=== PATIENT | male | born 1985 | race Caucasian/White ===

== ENCOUNTER 2018-01-23 06:58 | Observation (INO) | payer OTHER ==
--- NOTE | 2018-01-23 07:18 | NUR ---
PATIENT TO ROOM VIA EMS UNDER EXECUTIVE SERVICES ADMINISTRATOR. PHYSICIAN AT BEDSIDE FOR EVAL LEMUS CATHTER INSERTED 1525 ML STRAW COLORED URINE
--- NOTE | 2018-01-23 07:25 | NUR ---
PATIENT ADMITS TO TAKING UNKNOWN AMOUNT OF MOLLY[place] AND K2 KENIA 199901/22/18.
[2018-01-23 07:35] LABS: BARBITURATES NEGATIVE (NEGATIVE); COCAINE NEGATIVE (NEGATIVE); METHADONE NEGATIVE (NEGATIVE); OXCYCODONE NEGATIVE (NEGATIVE); TETRAHYDROCANNABIONOL NEGATIVE (NEGATIVE); TRICYLIC ANTIDEPRESSANTS NEGATIVE (NEGATIVE)
[2018-01-23 07:36] LABS: URINE BILIRUBIN - DIPSTICK NEGATIVE (NEGATIVE); URINE BLOOD DIPSTICK NEGATIVE (NEGATIVE); URINE COLOR YELLOW; URINE GLUCOSE - DIPSTICK >=1000 mg/dL (NEGATIVE); URINE KETONE NEGATIVE (NEGATIVE); URINE LEUK ESTERASE NEGATIVE (NEGATIVE); URINE NITRITE - DIPSTICK NEGATIVE (Negative); URINE PROTEIN - DIPSTICK NEGATIVE (NEG-TRACE); URINE SPECIFIC GRAVITY <=1.005; URINE UROBILINOGEN - DIPSTICK 0.2 E.U./dL (0.2)
[2018-01-23 07:39] LABS: URINE CLARITY CLEAR
[2018-01-23 07:40] LABS: HEMATOCRIT 36.9 % (39.0-50.0); HEMOGLOBIN 12.7 g/dl (14.0-18.0); IMMATURE GRANULOCYTES 0.8 % (0.0-1.0); MEAN CORPUSCULAR HGB 31.7 pG CALC (26.0-32.0); MEAN CORPUSCULAR HGB CONC 34.4 g/L CALC (32.0-36.0); NEUT# 13.17 thou/uL (1.82-7.42); RED BLOOD COUNT 4.01 mill/uL (4.70-6.10); RED CELL DISTRI WIDTH 12.4 % (11.5-15.5)
[2018-01-23 07:55] LABS: ALBUMIN 3.6 g/dL (3.2-5.0); ALKALINE PHOSPHATASE 55 u/l (38-126); ANION GAP 20 (6-22 (CALC)); BILIRUBIN, TOTAL 0.4 mg/dL (0.0-1.4); BUN 12 mg/dL (9-20); BUN/CREATININE RATIO 13 (12-20 (CALC)); CARBON DIOXIDE 16 mmol/l (22-30); CHLORIDE 110 mmol/l (95-108); CREATININE 0.9 mg/dL (0.7-1.3); ETHYL ALCOHOL 0 mg/dl (0-30); GFR > 60 ML/MIN (>=60 (CALC)); GFR FOR AFR.AMER. > 60 ML/MIN (>=60 (CALC)); MAGNESIUM 2.2 mg/dL (1.6-2.3); POTASSIUM 3.6 mmol/l (3.5-5.1); SGOT/AST 21 u/l (17-59); SGPT/ALT 29 u/l (21-72); SODIUM 142 mmol/l (137-146); TOTAL PROTEIN 6.5 g/dL (6.3-8.2)
--- NOTE | 2018-01-23 08:18 | NUR ---
PATINT RESTING AWAITING LAB AND RADIOLOGY RESULTS. PATIENT RESTING WITH EYES CLOSED BUT EASILY AROUSED TO SPEECH. PATIENT VOICES NO PAIN OR CONCERNS AT THIS TIME
--- NOTE | 2018-01-23 09:04 | NUR ---
PATIENT RESTING AWAITING LAB RESULTS. PATIENT DENIES ANY PAIN OR DISCOMFORT AT THIS TIME. PATIENT REMAINS GUARDED AT BEDSIDE
--- NOTE | 2018-01-23 10:00 | NUR ---
PATIENT RESTING WITH EYES CLOSED. PATIENT EASILY AROUSED TO SPEECH. PATIENT DENIES ANY PAIN OR DISCOMFORT AT THIS TIME
--- NOTE | 2018-01-23 10:32 | NUR ---
2000ML OF STRAW COLORED CLEAR URINE FROM LEMUS BAG
[2018-01-23 11:04] LABS: ANION GAP 14 (6-22 (CALC)); BUN 11 mg/dL (9-20); BUN/CREATININE RATIO 12 (12-20 (CALC)); CHLORIDE 112 mmol/l (95-108); CREATININE 0.9 mg/dL (0.7-1.3); GFR > 60 ML/MIN (>=60 (CALC)); GFR FOR AFR.AMER. > 60 ML/MIN (>=60 (CALC)); POTASSIUM 3.8 mmol/l (3.5-5.1); SODIUM 147 mmol/l (137-146)
--- NOTE | 2018-01-23 11:05 | NUR ---
PATIENT RESTING AWAITNG LAB RESULTS. PATIENT ALERT AND ORIENTED AND DENIES ANY PAIN OR DISCOMFORT AT THIS TIME
[2018-01-23 11:16] LABS: CARBON DIOXIDE 25 mmol/l (22-30)
--- NOTE | 2018-01-23 11:55 | NUR ---
PATIENT RESTING AWAITING ROOM ASSIGNMNET. PATIENT DENIES ANY PAIN OR DISCOMFORT AT THIS TIME.
--- NOTE | 2018-01-23 12:23 | NUR ---
PT CAME FROM ER VIA STRETCHER BY NURSE OMID . TWO GUARDS AT SIDE WITH PT. SAFETY PRECAUTIONS REINOFORCED AND ORINENTED TO CALL LIGHT . PT DENIES PAIN AT THIS TIME. ALLAN IS PATENT WITH YELLOW URINE.
--- NOTE | 2018-01-23 12:29 | NUR ---
REPORT CALLED TO FLOOR AND PATIENT TRANSPORTED
[2018-01-23 13:14] VITALS: BP 104/54
--- NOTE | 2018-01-23 14:40 | NUR ---
ASSESSMENT DONE BY MERLY RUTHERFORD.
--- NOTE | 2018-01-23 16:00 | NUR ---
PT IS RESTING IN BED WITH NO S/S OF DISTRESS NOTED. RESPS EVEN AND LABORED. PT DENIES NEEDS AT THIS TIME. X2 GUARDS IN ROOM. CALL LIGHT IN REACH.
[2018-01-23 17:52] VITALS: BP 123/68
[2018-01-23 19:05] VITALS: BP 122/65
--- NOTE | 2018-01-23 20:00 | NUR ---
PATIENT RESTING IN BED-AWAKE ALERT AND ORIENTEDX3 WITH DOROTHY'S AT BEDSIDE. PATIENT WITH SHACKEL TO LLE. CMS CHECKS TO LLE WNL. PEDAL PULSES PALPABLE. PATIENT WITH IV SITE TO RIGHT AC WITH IVF NS PATENT AND INFUSING AT 125CC/HR. SITE APPEARS HEALTHY AT THIS TIME. LEMUS CATH PATENT AND DRAINING CLEAR YELLOW URINE. BOTH HANDS SWOLLEN-RIGHT WORSE THAN LEFT. DENIES ANY TRAUMA TO HANDS. C/O PAIN TO BOTH HANDS-MEDICATED WITH TYLENOL 650MG PO. SAFETY PRECAUTIONS REINFORCED. CALL LIGHT IN REACH. WILL CONT TO MONITOR.
[2018-01-23 23:35] VITALS: BP 134/96
--- NOTE | 2018-01-24 | NUR ---
PATIENT RESTING IN BED-APPEARS SLEEPING WITH DOROTHY'S AT BEDSIDE. PATIENT REMAINS SHACKELED TO THE BED. CMS TO RIGHT LE WNL. IVF PATENT AND INFUSING AT 1100CC/HR. LEMUS PATENT AND DRAINING CLEAR YELLOW URINE. CALL LIGHT IN REACHL. WILL CONT TO MONITOR.
--- NOTE | 2018-01-24 04:46 | NUR ---
PATIENT APPEARS SLEEPING WITH DOROTHY'S AT BEDSIDE. CALL LIGHT IN REACH. WILL CONT TO MONITOR.
[2018-01-24 04:50] VITALS: BP 106/64
[2018-01-24 06:19] LABS: HEMATOCRIT 37.4 % (39.0-50.0); HEMOGLOBIN 12.4 g/dl (14.0-18.0); IMMATURE GRANULOCYTES 0.2 % (0.0-1.0); MEAN CELL VOLUME 95.2 fL CALC (80.0-100.0); MEAN CORPUSCULAR HGB 31.6 pG CALC (26.0-32.0); MEAN CORPUSCULAR HGB CONC 33.2 g/L CALC (32.0-36.0); NEUT# 2.88 thou/uL (1.82-7.42); RED BLOOD COUNT 3.93 mill/uL (4.70-6.10); RED CELL DISTRI WIDTH 13.2 % (11.5-15.5)
[2018-01-24 06:27] LABS: ALBUMIN 3.1 g/dL (3.2-5.0); ALKALINE PHOSPHATASE 51 u/l (38-126); ANION GAP 12 (6-22 (CALC)); BILIRUBIN, TOTAL 0.4 mg/dL (0.0-1.4); BUN 10 mg/dL (9-20); BUN/CREATININE RATIO 12 (12-20 (CALC)); CARBON DIOXIDE 26 mmol/l (22-30); CHLORIDE 110 mmol/l (95-108); CREATININE 0.8 mg/dL (0.7-1.3); GFR > 60 ML/MIN (>=60 (CALC)); GFR FOR AFR.AMER. > 60 ML/MIN (>=60 (CALC)); MAGNESIUM 1.8 mg/dL (1.6-2.3); POTASSIUM 4.4 mmol/l (3.5-5.1); SGOT/AST 25 u/l (17-59); SGPT/ALT 33 u/l (21-72); SODIUM 144 mmol/l (137-146)
[2018-01-24 08:10] VITALS: BP 134/79
--- NOTE | 2018-01-24 08:10 | NUR ---
PT IS RELAXING IN BED WITH 2 GUARDS IN THE ROOM. HR IS REG, PULSES ARE STRONG X4,ABD IS SOFT WITH ACTIVE BS. LEMUS INTACT DRAINING YELLOW URINE. IV SITE IS FREE FROM REDNESS OR EDEMA. CONTINUE TO OBSERVE AND MONITOR.
[2018-01-24 11:34] VITALS: BP 131/76
--- NOTE | 2018-01-24 12:00 | NUR ---
PT IS RELAXING IN BED WITH NO DISTRESS NOTED. IV SITE IS FREE FROM REDNESS OR EDEMA. LEMUS DISCONTINUED CATHETER INTACT. PT TOLERATED WELL.
--- NOTE | 2018-01-24 12:46 | NUR ---
POISION CONTROL CALLED AND CHECKED ON PT. IV SITE IS FREE FROM REDNESS OR EDEMA. LEMUS INTACT.
--- NOTE | 2018-01-24 13:36 | NUR ---
PT IS FROM [facility], GUARDS IN THE ROOM.
[2018-01-24 14:20] VITALS: BP 133/80
--- NOTE | 2018-01-24 14:30 | NUR ---
LEMUS DISCONTINEUD CATHETER INTACT NO REDNESS OR EDEMA. GAVE PT URINAL. CONTINUE TO OBSERVE AND MONITOR.
--- NOTE | 2018-01-24 18:06 | NUR ---
IV SITE DISCONTINUED CATHETER INTACT. NO REDNESS OR EDEMA. 2 GUARDS REMAIN AT BEDSIDE. WAITING ON THEM TO BRING CLOTHES. FOR DISCHARGE . INFORMED NAHUM NORIEGA RE: XRAY REPORT. CONTINUE TO OSBERVE AND MONITOR.
--- NOTE | 2018-01-24 18:17 | NUR ---
GUARDS BROUGHT CLOTHING FOR PT TO CHANGE INTO TOMORROW.
--- NOTE | 2018-01-24 18:43 | NUR ---
PT HAS BEEN TRANSPORTED TO THE CAR WITH GUARDS .ABLE TO VOID WITH NO DISTRESS NOTED.ALL INSTRUCTIONS GIVEN TO PT. Discharge instructions given. Patient verbalizes understanding of same. Discharged in stable condition via Wheelchair to *Other with GUARDS. All belongings sent with pt.[facility]
== END 2018-01-24 18:35 | DRG 918 ==
LOC: ED 06:58 → ED-I 07:11 → ED 11:51 → MS2 11:52
PROVIDERS: Emergency Medicine; ADMIT Internal Medicine; ATTEND Internal Medicine
PROC: 0T9B70Z Drainage of Bladder with Drainage Device, Via Natural or Artificial Opening (ICD-10-PCS; principal; 2018-01-23)
DX: T50.991A Poisoning by other drugs, medicaments and biological substances, accidental (unintentional), initial encounter (principal); F17.210 Nicotine dependence, cigarettes, uncomplicated; Y92.143 Cell of prison as the place of occurrence of the external cause